=== PATIENT | male | born 1965 | race Caucasian/White ===

== ENCOUNTER 2016-07-11 01:00 | Emergency (ER) | payer MEDICAID ==
--- NOTE | 2016-07-11 01:11 | EDPHY ---
[id number] after being pepper sprayed just prior to arrival by the police. Apparently, the patient was drinking heavily near the [employer] had was stopped by police. He would not comply with their questioning and became aggressive. He was then pepper sprayed by police. Immediately, he had the acute onset of facial pain which is described as burning which involves his eyes as well. He has watering of his eyes, though denies any changes in vision. He denies any photophobia. REVIEW OF SYSTEMS Constitutional: No fever, no chills. Eyes: No discharge. ENT: No sore throat. Cardiovascular: No chest pain, no palpitations. Respiratory: No cough, no shortness of breath. Gastrointestinal: No abdominal pain, no vomiting. Genitourinary: No hematuria. Musculoskeletal: No back pain. Skin: No rashes. Neurological: No headache. Soc Hx: Alcohol abuse, homeless FHx: PHYSICAL General Appearance: Alert, no distress Eyes: Pupils equal and round, conjunctivae are injected with tearing bilaterally ENT, Mouth: Skin of face is slightly erythematous, clear rhinorrhea, Mucous membranes moist Respiratory: There are no retractions, lungs are clear to auscultation Cardiovascular: Regular rate and rhythm Gastrointestinal: Abdomen is soft and non-tender, no masses, bowel sounds normal Neurological: A&O, moves all extremities Skin: Warm and dry, no rashes Musculoskeletal: Neck is supple non tender Extremities: symmetrical, full range of motion Psychiatric: Patient is oriented X 3, there is no agitation Source: Patient, Police, EMS Exam Limitations: No limitations - Medical/Surgical History Hx Asthma: No Hx Chronic Respiratory Disease: No Hx Diabetes: No Hx Cardiac Disease: No Hx Renal Disease: No Hx Cirrhosis: No Hx Alcoholism: Yes Hx HIV/AIDS: No Hx Splenectomy or Spleen Trauma: No Other PMH: ETOH ABUSE - Social History Smoking Status: Former smoker Constitutional: Initial Vital Signs Temperature (C) 36.9 C 07/11/16 01:20 Heart Rate 73 07/11/16 01:20 Respiratory Rate 20 07/11/16 01:20 Blood Pressure 195/102 H 07/11/16 01:20 O2 Sat (%) 93 07/11/16 01:20 O2 Delivery Mode Room Air Allergies/Adverse Reactions: Unable to Assess Allergy (Unverified 09/01/14 15:34) Home Medications: Medication Instructions Recorded Unobtainable 09/01/14 Medical Decision Making Differential Diagnosis: This is a 51-year-old male with history of homelessness and alcohol abuse who presents after pepper spray by the police in the setting of alcohol intoxication and agitation. Here, he is angry though cooperative with exam. He does have conjunctival injection bilaterally however no vision changes. I feel corneal abrasion is unlikely. He does not have any other injuries. He will be discharged in the care of the police. His blood pressure was elevated, however he does not have any chest pain, loss of consciousness, abdominal pain, thus I doubt hypertensive emergency though I have considered this. Departure - Departure Disposition: Home, Routine, Self-Care Clinical Impression: Toxic effect of pepper spray, Alcohol intoxication Condition: Good Instructions: Alcohol Intoxication (ED) Referrals: [facility] [Outside] - As per Instructions
[2016-07-11 01:23] VITALS: BP 195/102; PULSE 73; RESP 20; TEMP 98.4; O2SAT 93
== END 2016-07-11 01:25 | disposition home or self-care (01) ==
LOC: EDSEX → EDUNIT#
DX: F10.129 Alcohol abuse with intoxication, unspecified (principal); T47.5X Poisoning by, adverse effect of and underdosing of digestants; Z87.891 Personal history of nicotine dependence

== ENCOUNTER 2017-03-07 02:45 | Emergency (ER) | payer MEDICAID ==
--- NOTE | 2017-03-07 02:49 | EDPHY ---
H & P HPI/ROS: HPI CHIEF COMPLAINT: Alcohol Intoxication HISTORY OF PRESENT ILLNESS: This patient is a 52-year-old male, presents emergency room by EMS after Police made contact with him he was sleeping on a [employer] for warmth. He has been drinking alcohol this evening. He is homeless. Alcoholic. He states he drank a very large amount of alcohol. He states additionally he fell on his head very hard. He denies any other areas of trauma. There is no significant external signs of trauma on exam. He arrives GCS 15 alert or x4 however intoxicated, in a cervical collar rigid. No complaints. Past Medical History: Daily alcohol use, alcoholism, homelessness Past Surgical History: No recent surgery Social History: Daily alcohol use, homeless Family History: Noncontributory ROS REVIEW OF SYSTEMS: A comprehensive 10 point review of systems is otherwise negative aside from elements mentioned in the history of present illness. Exam Constitutional Intoxicated, triage nursing summary reviewed, vital signs reviewed, Sleepy, smells of alcohol Eyes normal conjunctivae and sclera, horizontal beating nystagmus consistent acute alcohol intoxication, otherwise pupils equal and react to light HENT head/neck normal inspection, atraumatic, in cervical spine immobilization , rigid hard collar, moist mucus membranes, no epistaxis, neck supple/ no meningismus, no raccoon eyes. Respiratory clear to auscultation bilaterally, normal breath sounds, no respiratory distress, no wheezing. Cardiovascular rate normal, regular rhythm, no murmur, no edema, distal pulses normal. Gastrointestinal soft, non-tender, no rebound, no guarding, normal bowel sounds, no distension, no pulsatile mass. Genitourinary no CVA tenderness. Musculoskeletal no midline vertebral tenderness, full range of motion, no calf swelling, no tenderness of extremities, no meningismus, good pulses, neurovascularly intact. Skin pink, warm, & dry, no rash, skin atraumatic. Neurologic sleepy, intoxicated with alcohol,, alert and oriented x 3, AAOx3, moves all 4 extremities equally, motor intact, sensory intact, CN II-XII intact , , normal vision, normal speech. Psychiatric normal mood/affect. Heme/Lymph/Immune no lymphadenopathy. Differential Diagnosis: Includes but is not limited to in a particular order acute alcohol intoxication, alcohol abuse, dehydration, electrolyte abnormality , nausea vomiting from acute alcohol intoxication Medical Decision Making: Plan for this patient given trauma and acute alcohol intoxication well as CT scan head without contrast and CT cervical spine without contrast rule out significant trauma this setting of acute alcohol intoxication and falling. Check breath alcohol. Re-evaluation: ED CT scan of the head and neck for trauma the setting of acute alcohol intoxication is negative. [facility]ren [place]. Source: Patient, EMS - Medical/Surgical History Hx Asthma: No Hx Chronic Respiratory Disease: No Hx Diabetes: No Hx Cardiac Disease: No Hx Renal Disease: No Hx Cirrhosis: No Hx Alcoholism: Yes Hx HIV/AIDS: No Hx Splenectomy or Spleen Trauma: No Other PMH: ETOH ABUSE - Social History Smoking Status: Former smoker Constitutional: Initial Vital Signs Temperature (C) 36.6 C 03/07/17 02:48 Heart Rate 72 03/07/17 02:48 Respiratory Rate 16 03/07/17 02:48 Blood Pressure 154/101 H 03/07/17 02:48 O2 Sat (%) 96 03/07/17 02:48 O2 Delivery Mode Room Air Allergies/Adverse Reactions: No Known Allergies Allergy (Unverified 03/07/17 02:47) Home Medications: Medication Instructions Recorded Unobtainable 09/01/14 Departure - Departure Disposition: Home, Routine, Self-Care Clinical Impression: Alcohol intoxication Qualifiers: Complication of substance-induced condition: uncomplicated Qualified Code(s): F10.920 - Alcohol use, unspecified with intoxication, uncomplicated Condition: Good Instructions: Alcohol Intoxication (ED), Abuse of Alcohol (ED) Referrals: NONE *PRIMARY CARE P,. [Primary Care Provider] - As per Instructions
[2017-03-07 02:50] VITALS: RESP 16; TEMP 97.9
[2017-03-07 07:43] VITALS: BP 146/96; PULSE 70; O2SAT 96
== END 2017-03-07 07:42 | disposition home or self-care (01) ==
LOC: EDUNIT#
DX: F10.920 Alcohol use, unspecified with intoxication, uncomplicated (principal); Z87.891 Personal history of nicotine dependence

== ENCOUNTER 2017-05-05 14:06 | Emergency (ER) | payer MEDICAID ==
--- NOTE | 2017-05-05 14:09 | EDPHY ---
HPI/HX/ROS/PE/MDM Narrative: CHIEF COMPLAINT: Alcohol intoxication HPI: The patient is a 52-year-old male with a history of alcoholism and homelessness. He has a history of multiple visits to the ED related to alcohol. He was found too intoxicated to walk on the street just prior to arrival and paramedics brought him to the emergency department for medical clearance. Apparently there are multiple warrants out for his arrest and police department needs and medically cleared. The patient denies any complaints. He does admit to alcohol. He denies any recent trauma. Patient is noted to be incontinent of urine prior to arrival. REVIEW OF SYSTEMS: Unable to obtain secondary to altered mental status. PMH: Alcoholism. SOCIAL HISTORY: Alcoholism, last drink today. Homeless. PHYSICAL EXAM: General: Patient is appears severely intoxicated. Smells of alcohol. Head: Normocephalic, atraumatic ENT: Eyes are normal to inspection. ENT inspection normal. Pupils are mid position and reactive bilaterally. Neck: Normal inspection. Full range of motion. Respiratory: No respiratory distress. Breath sounds normal bilaterally. Cardiovascular: Regular rate and rhythm. Normal heart sounds. Neuro: No focal motor or sensory deficits. MDM: The patient appears to be intoxicated with alcohol. I see no signs of trauma or other acute medical issue. I think he is safe for discharge to [facility]. We called [employer] who apparently told the charge nurse to street the patient - they do not want to come to the ED. General Time Seen by Provider: 05/05/17 14:08 Initial Vital Signs: Initial Vital Signs Temperature (C) 36.9 C 05/05/17 14:16 Heart Rate 86 05/05/17 14:16 Respiratory Rate 18 05/05/17 14:16 Blood Pressure 128/95 H 05/05/17 14:16 O2 Sat (%) 98 05/05/17 14:16 O2 Delivery Mode Room Air Allergies/Adverse Reactions: No Known Allergies Allergy (Unverified 03/07/17 02:47) Home Medications: Medication Instructions Recorded Unobtainable 09/01/14 Departure - Departure Disposition: Home, Routine, Self-Care Clinical Impression: Alcohol intoxication, Alcohol dependence Condition: Good Instructions: Alcohol Intoxication (ED) Additional Instructions: Please refrain from abusing alcohol. Return to the emergency department immediately for fever, vomiting, confusion, headache, abdominal pain or other worsening of condition. Followup with your primary care physician within 72 hours for reevaluation. Referrals: NONE *PRIMARY CARE P,. [Primary Care Provider] - As per Instructions
[2017-05-05 14:17] VITALS: RESP 18
[2017-05-05 15:11] VITALS: BP 132/85; PULSE 78; TEMP 98.6; O2SAT 95
== END 2017-05-05 15:41 | disposition home or self-care (01) ==
LOC: EDUNIT#
DX: F10.129 Alcohol abuse with intoxication, unspecified (principal)

== ENCOUNTER 2018-06-17 23:41 | Emergency (ER) | payer MEDICAID ==
--- NOTE | 2018-06-17 23:43 | EDPHY ---
H & P Time Seen by Provider: 06/17/18 23:43 HPI/ROS: HPI CHIEF COMPLAINT: Alcohol Intoxication HISTORY OF PRESENT ILLNESS: 53-year-old male presents emergency room with acute alcohol intoxication. Patient is found sleeping outside a restorationist. Unable to ambulate. Also had urinary incontinence. Presents emergency room highly intoxicated. Past Medical History: Daily alcohol use, alcoholism. Past Surgical History: No recent surgery Social History: Daily alcohol use. Homeless. Family History: Noncontributory ROS REVIEW OF SYSTEMS: 10 Systems were reviewed and negative with the exception of the elements mentioned in the history of present illness. Exam Constitutional Intoxicated, triage nursing summary reviewed, vital signs reviewed, Sleepy, smells of alcohol Eyes normal conjunctivae and sclera, horizontal beating nystagmus consistent acute alcohol intoxication, otherwise pupils equal and react to light HENT normal inspection, atraumatic, moist mucus membranes, no epistaxis, neck supple/ no meningismus, no raccoon eyes. Respiratory clear to auscultation bilaterally, normal breath sounds, no respiratory distress, no wheezing. Cardiovascular rate normal, regular rhythm, no murmur, no edema, distal pulses normal. Gastrointestinal soft, non-tender, no rebound, no guarding, normal bowel sounds, no distension, no pulsatile mass. Genitourinary no CVA tenderness. Musculoskeletal no midline vertebral tenderness, full range of motion, no calf swelling, no tenderness of extremities, no meningismus, good pulses, neurovascularly intact. Skin pink, warm, & dry, no rash, skin atraumatic. Neurologic sleepy, intoxicated with alcohol,, alert and oriented x 3, AAOx3, moves all 4 extremities equally, motor intact, sensory intact, CN II-XII intact , , normal vision, normal speech. Psychiatric normal mood/affect. Heme/Lymph/Immune no lymphadenopathy. Differential Diagnosis: Includes but is not limited to in a particular order acute alcohol intoxication, alcohol abuse, dehydration, electrolyte abnormality , nausea vomiting from acute alcohol intoxication Medical Decision Making: IV establishment IV fluid bolus basic blood work, chemistry in glucose, serum alcohol level. Watch closely for further sedation, watch for metabolism of alcohol. Once patient is appropriately sober can be safely discharged. Re-evaluation: Serum alcohol level 346. Time 12:57 a.m.. 0615: Patient on arc hold. Safe for discharge. Ambulatory. Clinically sober. No complaints. Vital signs stable. Source: Patient, EMS - Medical/Surgical History Hx Asthma: No Hx Chronic Respiratory Disease: No Hx Diabetes: No Hx Cardiac Disease: No Hx Renal Disease: No Hx Cirrhosis: No Hx Alcoholism: Yes Hx HIV/AIDS: No Hx Splenectomy or Spleen Trauma: No Other PMH: ETOH ABUSE - Social History Smoking Status: Former smoker Constitutional: Initial Vital Signs Temperature (C) 36.2 C 06/17/18 23:45 Heart Rate 83 06/17/18 23:45 Respiratory Rate 16 06/17/18 23:45 Blood Pressure 134/78 H 06/17/18 23:45 O2 Sat (%) 95 06/17/18 23:45 O2 Delivery Mode Room Air Allergies/Adverse Reactions: No Known Allergies Allergy (Unverified 06/18/18 00:09) Home Medications: Medication Instructions Recorded NK [No Known Home Meds] 06/18/18 Medical Decision Making - Data Points Laboratory Results: Laboratory Results 06/17/18 23:45 06/17/18 00:00 06/17/18 06/17/18 23:45 00:00 WBC 14.28 10^3/uL H 10^3/uL (3.80-9.50) RBC 5.09 10^6/uL 10^6/uL (4.40-6.38) Hgb 16.3 g/dL g/dL (13.7-17.5) Hct 48.9 % % (40.0-51.0) MCV 96.1 fL fL (81.5-99.8) MCH 32.0 pg pg (27.9-34.1) MCHC 33.3 g/dL g/dL (32.4-36.7) RDW 12.5 % % (11.5-15.2) Plt Count 275 10^3/uL 10^3/uL (150-400) MPV 8.3 fL L fL (8.7-11.7) Neut % (Auto) 24.9 % L % (39.3-74.2) Lymph % (Auto) 66.6 % H % (15.0-45.0) [place] % (Auto) 4.9 % % (4.5-13.0) Eos % (Auto) 2.6 % % (0.6-7.6) Baso % (Auto) 0.6 % % (0.3-1.7) Nucleat RBC Rel Count 0.1 % % (0.0-0.2) Absolute Neuts (auto) 3.56 10^3/uL 10^3/uL (1.70-6.50) Absolute Lymphs (auto) 9.51 10^3/uL H 10^3/uL (1.00-3.00) Absolute Monos (auto) 0.70 10^3/uL 10^3/uL (0.30-0.80) Absolute Eos (auto) 0.37 10^3/uL 10^3/uL (0.03-0.40) Absolute Basos (auto) 0.09 10^3/uL 10^3/uL (0.02-0.10) Absolute Nucleated RBC 0.01 10^3/uL 10^3/uL (0-0.01) Immature Gran % 0.4 % % (0.0-1.1) Immature Gran # 0.06 10^3/uL 10^3/uL (0.00-0.10) RBC/WBC/PLT Morphology TNP Atypical Lymphocytes 2+ H Smudge Cells [employer] Platelet Estimate TNP Smear Review By Pending Sodium 146 mEq/L H mEq/L (135-145) Potassium 4.2 mEq/L mEq/L (3.5-5.2) Chloride 109 mEq/L mEq/L (97-110) Carbon Dioxide 26 mEq/l mEq/l (22-31) Anion Gap 11 mEq/L mEq/L (6-14) BUN 14 mg/dL mg/dL (7-23) Creatinine 0.9 mg/dL mg/dL (0.7-1.3) Estimated GFR > 60 Glucose 84 mg/dL mg/dL (70-100) Calcium 8.8 mg/dL mg/dL (8.5-10.4) Ethyl Alcohol 346 mg/dL H mg/dL (0-10) Medications Given: Discontinued Medications Sodium Chloride (Ns) 1,000 mls @ 0 mls/hr IV ONCE ONE PRN Reason: Wide Open Stop: 06/17/18 23:46 Last Admin: 06/18/18 00:11 Dose: 1,000 mls Departure - Departure Disposition: Home, Routine, Self-Care Clinical Impression: Alcohol intoxication Condition: Good Instructions: Alcohol Intoxication (ED), Abuse of Alcohol (ED) Referrals: NONE *PRIMARY CARE P,. [Primary Care Provider] - As per Instructions
[2018-06-17] MEDS ORDERED: NS 1,000 ML IV ONE (23:45)
[2018-06-18 00:06] LABS: PLATELET COUNT 275 10^3/uL (150-400)
[2018-06-18 06:21] VITALS: BP 121/76
== END 2018-06-18 06:20 | disposition home or self-care (01) ==
LOC: EDUNIT#
DX: F10.920 Alcohol use, unspecified with intoxication, uncomplicated (principal)
CPT/HCPCS: G0480

== ENCOUNTER 2018-06-20 20:23 | Emergency (ER) | payer MEDICAID ==
[2018-06-20] MEDS ORDERED: NS 1,000 ML IV ONE (20:25)
--- NOTE | 2018-06-20 20:28 | EDPHY ---
H & P Source: Patient, EMS - Medical/Surgical History Hx Asthma: No Hx Chronic Respiratory Disease: No Hx Diabetes: No Hx Cardiac Disease: No Hx Renal Disease: No Hx Cirrhosis: No Hx Alcoholism: Yes Hx HIV/AIDS: No Hx Splenectomy or Spleen Trauma: No Other PMH: ETOH ABUSE - Social History Smoking Status: Former smoker Time Seen by Provider: 06/20/18 20:26 HPI/ROS: HPI CHIEF COMPLAINT: Alcohol Intoxication HISTORY OF PRESENT ILLNESS: 53-year-old male, homeless, daily alcohol use presents emergency room by EMS after was found in the bathroom of [place] [employer] liquor store after he stool some alcohol from the store and drank in the bathroom. He came acutely intoxicated. Unable to ambulate. Unable to stand up. Not vomiting. No acute distress. Past Medical History: Alcoholism daily alcohol use. Past Surgical History: Noncontributory Social History: Intoxicated with alcohol. Daily alcohol use. Family History: Noncontributory ROS REVIEW OF SYSTEMS: 10 Systems were reviewed and negative with the exception of the elements mentioned in the history of present illness. Exam Constitutional Intoxicated, triage nursing summary reviewed, vital signs reviewed, Sleepy, smells of alcohol Eyes normal conjunctivae and sclera, horizontal beating nystagmus consistent acute alcohol intoxication, otherwise pupils equal and react to light HENT normal inspection, atraumatic, moist mucus membranes, no epistaxis, neck supple/ no meningismus, no raccoon eyes. Respiratory clear to auscultation bilaterally, normal breath sounds, no respiratory distress, no wheezing. Cardiovascular rate normal, regular rhythm, no murmur, no edema, distal pulses normal. Gastrointestinal soft, non-tender, no rebound, no guarding, normal bowel sounds, no distension, no pulsatile mass. Genitourinary no CVA tenderness. Musculoskeletal no midline vertebral tenderness, full range of motion, no calf swelling, no tenderness of extremities, no meningismus, good pulses, neurovascularly intact. Skin pink, warm, & dry, no rash, skin atraumatic. Neurologic sleepy, intoxicated with alcohol,, alert and oriented x 3, AAOx3, moves all 4 extremities equally, motor intact, sensory intact, CN II-XII intact , , normal vision, normal speech. Psychiatric normal mood/affect. Heme/Lymph/Immune no lymphadenopathy. Differential Diagnosis: Includes but is not limited to in a particular order acute alcohol intoxication, alcohol abuse, dehydration, electrolyte abnormality , nausea vomiting from acute alcohol intoxication Medical Decision Making: Plan for this patient IV establishment IV fluid bolus , basic blood work electrolytes and serum alcohol level. Monitor for worsening condition monitor for sobriety. Re-evaluation: Serum alcohol level 414. [address] Fitzpatrick 11pm. Pending sobriety. On Arc Hold. (Lucio Monroy) Constitutional: Initial Vital Signs Temperature (C) 36.6 C 06/20/18 20:28 Heart Rate 94 06/20/18 20:28 Respiratory Rate 18 06/20/18 20:28 Blood Pressure 153/102 H 06/20/18 20:28 O2 Sat (%) 94 06/20/18 20:28 O2 Delivery Mode Room Air Allergies/Adverse Reactions: No Known Allergies Allergy (Verified 06/20/18 20:28) Home Medications: Medication Instructions Recorded NK [No Known Home Meds] 06/18/18 Medical Decision Making Other Provider: [address] Monroy pending improvement in mental status secondary to alcohol intoxication. 0430 patient is ambulating unassisted in the emergency department. He is medically cleared for [facility]. (Balaji Fitzpatrick) - Data Points Laboratory Results: Laboratory Results 06/20/18 20:47 06/20/18 20:47 06/20/18 06/20/18 20:47 20:47 WBC 12.68 10^3/uL H 10^3/uL (3.80-9.50) RBC 4.82 10^6/uL 10^6/uL (4.40-6.38) Hgb 15.1 g/dL g/dL (13.7-17.5) Hct 45.3 % % (40.0-51.0) MCV 94.0 fL fL (81.5-99.8) MCH 31.3 pg pg (27.9-34.1) MCHC 33.3 g/dL g/dL (32.4-36.7) RDW 12.7 % % (11.5-15.2) Plt Count 271 10^3/uL 10^3/uL (150-400) MPV 8.3 fL L fL (8.7-11.7) Neut % (Auto) Not Reported Lymph % (Auto) Not Reported [place] % (Auto) Not Reported Eos % (Auto) Not Reported Baso % (Auto) Not Reported Nucleat RBC Rel Count Not Reported Absolute Neuts (auto) Not Reported Absolute Lymphs (auto) Not Reported Absolute Monos (auto) Not Reported Absolute Eos (auto) Not Reported Absolute Basos (auto) Not Reported Absolute Nucleated RBC Not Reported Immature Gran % Not Reported Seg Neutrophils % 28.0 % % Band Neutrophils % 0.0 % % Lymphocytes % 68.0 % % Monocytes % 3.0 % % Eosinophils % 1.0 % % Basophils % 0.0 % % Metamyelocytes % 0.0 % % Myelocytes % 0.0 % % Promyelocytes % 0.0 % % Blast Cells % 0.0 % % Immature Gran # Not Reported Absolute Seg Neuts 3.55 10^3/uL 10^3/uL (1.70-6.50) Absolute Band Neuts 0.00 10^3/uL 10^3/uL (0.00-0.70) Absolute Lymphocytes 8.62 10^3/uL H 10^3/uL (1.00-3.00) Absolute Monocytes 0.38 10^3/uL 10^3/uL (0.30-0.80) Absolute Eosinophils 0.13 10^3/uL 10^3/uL (0.03-0.40) Absolute Basophils 0.00 10^3/uL L 10^3/uL (0.02-0.10) Absolute Metamyelocyte 0.00 10^3/mL 10^3/mL (0.00-0.00) Absolute Myelocytes 0.00 10^3/mL 10^3/mL (0.00-0.00) Absolute Promyelocytes 0.00 10^3/uL 10^3/uL (0.00-0.00) Absolute Plasma Cells 0.00 10^3/uL 10^3/uL (0.00-0.00) RBC/WBC/PLT Morphology NORMAL (NORMAL) Absolute Blast Cells 0.00 10^3/uL 10^3/uL (0.00-0.00) Plasma Cells % 0.0 % % Smudge Cells 1+ H Platelet Estimate ADEQUATE (ADEQ) Smear Review By Pending Sodium 145 mEq/L mEq/L (135-145) Potassium 4.3 mEq/L mEq/L (3.5-5.2) Chloride 110 mEq/L mEq/L (97-110) Carbon Dioxide 25 mEq/l mEq/l (22-31) Anion Gap 10 mEq/L mEq/L (6-14) BUN 11 mg/dL mg/dL (7-23) Creatinine 0.9 mg/dL mg/dL (0.7-1.3) Estimated GFR > 60 Glucose 96 mg/dL mg/dL (70-100) Calcium 8.8 mg/dL mg/dL (8.5-10.4) Ethyl Alcohol 414 mg/dL H* mg/dL (0-10) Medications Given: Discontinued Medications Sodium Chloride (Ns) 1,000 mls @ 0 mls/hr IV EDNOW ONE; Wide Open PRN Reason: Protocol Stop: 06/20/18 20:26 Last Admin: 06/20/18 20:51 Dose: 1,000 mls Departure - Departure Disposition: Home, Routine, Self-Care Clinical Impression: Alcohol intoxication Qualifiers: Complication of substance-induced condition: uncomplicated Qualified Code(s): F10.920 - Alcohol use, unspecified with intoxication, uncomplicated Condition: Good Instructions: Alcohol Intoxication (ED), Abuse of Alcohol (ED) Referrals: NONE *PRIMARY CARE P,. [Primary Care Provider] - As per Instructions
[2018-06-20 21:00] LABS: PLATELET COUNT 271 10^3/uL (150-400)
[2018-06-21 04:56] VITALS: BP 147/80
== END 2018-06-21 04:56 | disposition home or self-care (01) ==
LOC: EDUNIT#
DX: F10.920 Alcohol use, unspecified with intoxication, uncomplicated (principal); E86.9 Volume depletion, unspecified; Z59.0 Homelessness; Z87.891 Personal history of nicotine dependence
CPT/HCPCS: G0480

== ENCOUNTER 2018-07-04 17:05 | Emergency (ER) | payer MEDICAID ==
--- NOTE | 2018-07-04 17:12 | EDPHY ---
H & P Stated Complaint: etoh Time Seen by Provider: 07/04/18 17:12 HPI/ROS: CHIEF COMPLAINT: Intoxication HISTORY OF PRESENT ILLNESS: Patient is a 53-year-old homeless alcoholic man who was found sleeping on campus. [place] police called EMS who brought him here because he would not walk on his own. He has no complaints. No injuries. No recent fevers or illness. The only thing he will stay here in the room is that the nurse is pretty and that he and that he wants to go home with her. Severity: Moderate Modifying factors: None REVIEW OF SYSTEMS: Constitutional: denies: chills, fever, recent illness, recent injury EENTM: denies: blurred vision, double vision, nose congestion Respiratory: denies: cough, shortness of breath Cardiac: denies: chest pain, irregular heart rate, lightheadedness, palpitations Gastrointestinal/Abdominal: denies: abdominal pain, diarrhea, nausea, vomiting, blood streaked stools Genitourinary: denies: dysuria, frequency, hematuria, pain Musculoskeletal: denies: joint pain, muscle pain Skin: denies: lesions, rash, jaundice, bruising Neurological: denies: headache, numbness, paresthesia, tingling, dizziness, weakness Hematologic/Lymphatic: denies: blood clots, easy bleeding, easy bruising Immunologic/allergic: denies: HIV/AIDS, transplant 10 systems reviewed and negative except as noted Physical Exam General Appearance: WD/WN, no apparent distress, obtunded (But arousable with painful stimulation) EENT: PERRL/EOMI, normal ENT inspection, TMs normal, pharynx normal Neck: non-tender, full range of motion, supple, normal inspection Respiratory: chest non-tender, lungs clear, normal breath sounds Cardiac/Chest: normal peripheral pulses, regular rate, rhythm, P Peripheral Pulses: 2+: carotid (R), carotid (L), femoral (R), femoral (L), dorsalis-pedis (R), dorsalis-pedis (L) Abdomen: normal bowel sounds, non-tender, soft Extremities: normal range of motion, non-tender, normal inspection, normal capillary refill Neurological: calm, 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 No: alert (Somnolent) Appearance: appropriate appearance, appropriate insight, neat, denies illness Behavior/Eye Contact/Speech: cooperative, decreased rate of speech Thoughts/Hallucinations: normal thought pattern, no apparent hallucination Skin: normal color, warm/dry Source: Patient, EMS Exam Limitations: Intoxication - Personal History Current Tetanus/Diphtheria Vaccine: Unsure Current Tetanus Diphtheria and Acellular Pertussis (TDAP): Unsure - Medical/Surgical History Hx Asthma: No Hx Chronic Respiratory Disease: No Hx Diabetes: No Hx Cardiac Disease: No Hx Renal Disease: No Hx Cirrhosis: No Hx Alcoholism: Yes Hx HIV/AIDS: No Hx Splenectomy or Spleen Trauma: No Other PMH: ETOH ABUSE - Family History Significant Family History: No pertinent family hx - Social History Smoking Status: Former smoker Alcohol Use: Heavy Drug Use: Marijuana Constitutional: Initial Vital Signs Temperature (C) 36.6 C 07/04/18 17:07 Heart Rate 80 07/04/18 17:07 Respiratory Rate 16 07/04/18 17:07 Blood Pressure 130/83 H 07/04/18 17:07 O2 Sat (%) 96 07/04/18 17:07 O2 Delivery Mode Room Air Allergies/Adverse Reactions: No Known Allergies Allergy (Verified 07/04/18 17:07) Home Medications: Medication Instructions Recorded NK [No Known Home Meds] 06/18/18 Medical Decision Making ED Course/Re-evaluation: Patient is intoxicated. He has no other complaints. He is harassing the nurse subtly. He does not need to be in the ER for medical reasons. Will discharge him at this time either to the street or to the alcohol recovery Center. he does not wish to go to the alcohol recovery Center. 7:00 p.m. The patient is ambulating without difficulty. Will discharge with [facility] to the arc. Differential Diagnosis: Partial list of the Differential diagnosis considered include but were not limited to; intoxication, polysubstance abuse and although unlikely based on the history and physical exam, I also considered head injury, infection, assault. Departure - Departure Disposition: Home, Routine, Self-Care Clinical Impression: Alcohol intoxication Qualifiers: Complication of substance-induced condition: uncomplicated Qualified Code(s): F10.920 - Alcohol use, unspecified with intoxication, uncomplicated Condition: Fair Instructions: Alcohol Intoxication (ED) Referrals: [facility] [Outside] - As per Instructions Patient,NotPresent [Unknown] - As per Instructions
[2018-07-04 19:29] VITALS: BP 135/87
== END 2018-07-04 19:29 | disposition home or self-care (01) ==
LOC: EDUNIT#
DX: F10.920 Alcohol use, unspecified with intoxication, uncomplicated (principal); Z87.891 Personal history of nicotine dependence

== ENCOUNTER 2018-10-11 17:15 | Emergency (ER) | payer MEDICAID ==
--- NOTE | 2018-10-11 17:22 | EDPHY ---
H & P Smoking Status: Unknown if ever smoked Time Seen by Provider: 10/11/18 17:21 HPI/ROS: CHIEF COMPLAINT: Altered mental status HISTORY OF PRESENT ILLNESS: Patient arrives by ambulance, EMS was called to reports of an unresponsive person outside like her marked. Patient admits to "drinking booze" and had a pre-hospital glucose of 98. Denies any medical complaints. Patient's mental status is too altered to obtain further history or review of systems. PAST MEDICAL HISTORY: Unable on arrival, patient has had multiple previous ED visits for intoxication. Social history: Recent alcohol. General Appearance: Lethargic, opens eyes to voice. Eyes: No scleral icterus. Pupils equal and reactive. ENT, Mouth: Normal mucous membranes. No tongue laceration and no external evidence of head trauma. Respiratory: Normal respiratory effort, breath sounds equal, lungs are clear to auscultation. Cardiovascular: Regular rate and rhythm. Gastrointestinal: Abdomen is soft and non tender. Neurological: Will answer simple questions but is lethargic, opens eyes to voice. Moves all extremities. Skin: Warm and dry, no rashes. Musculoskeletal: No spinal or extremity deformity or tenderness. Psychiatric: Not agitated. Emergency Department course/MDM: Pre-hospital glucose 98, history consistent with presentation, plan for serial examinations. 194: More alert than previous, signed out to [place] at this time. (Randy Fan ) 1940: Patient care assumed from Dr. Fan at shift change pending sobriety. 2019: Patient is verbalizing well and appears clinically sober. We will have him ambulate. Return precautions provided; patient is comfortable with this plan. (Roland Mcgregor) Constitutional: Initial Vital Signs Temperature (C) 36.6 C 10/11/18 17:44 Heart Rate 87 10/11/18 17:44 Respiratory Rate 16 10/11/18 17:44 Blood Pressure 113/79 10/11/18 17:44 O2 Sat (%) 97 10/11/18 17:44 O2 Delivery Mode Room Air Allergies/Adverse Reactions: No Known Allergies Allergy (Verified 10/11/18 17:56) Home Medications: Medication Instructions Recorded NK [No Known Home Meds] 06/18/18 Unobtainable 08/28/18 Departure - Departure Disposition: Home, Routine, Self-Care Clinical Impression: Alcohol intoxication Qualifiers: Complication of substance-induced condition: uncomplicated Qualified Code(s): F10.920 - Alcohol use, unspecified with intoxication, uncomplicated Condition: Good Instructions: Alcohol Intoxication (ED) Additional Instructions: Please refrain from abusing alcohol. Return to the emergency department immediately for fever, vomiting, confusion, headache, abdominal pain or other worsening of condition. Followup with your primary care physician within 72 hours for reevaluation. Referrals: [facility],. [Clinic] - As per Instructions
[2018-10-11 20:41] VITALS: BP 120/72
== END 2018-10-11 20:41 | disposition home or self-care (01) ==
LOC: EDUNIT#
DX: F10.920 Alcohol use, unspecified with intoxication, uncomplicated (principal)

== ENCOUNTER 2018-11-16 17:16 | Emergency (ER) | payer MEDICAID | END 2018-11-16 21:45 | disposition home or self-care (01) ==